=== PATIENT | male | born 1955 | race Caucasian/White ===

== ENCOUNTER 2019-11-17 09:14 | Day surgery (SDC) | payer SELFPAY ==
[2019-11-17 10:22] LABS: HEMATOCRIT 39.2 % (37.9-51.0); HEMOGLOBIN 12.5 g/dL (13.5-17.0); MEAN CORPUSCULAR HEMOGLOBIN 29.6 pg (27.0-33.4); MEAN CORPUSCULAR HGB CONC 31.9 g/dL (32.0-36.0); MEAN CORPUSCULAR VOLUME 93 fl (80-97); PLATELET COUNT 278 10^3/uL (150-450); RED BLOOD COUNT 4.22 10^6/uL (4.35-5.55); RED CELL DISTRIBUTION WIDTH 18.1 % (11.5-14.0)
[2019-11-17 10:44] LABS: BLOOD UREA NITROGEN 20 mg/dL (7-20)
[2019-11-17 10:46] LABS: INTERNATIONAL RATION (INR) 1.22; PROTHROMBIN TIME 15.4 SEC (11.4-15.4)
[2019-11-17 10:47] LABS: PARTIAL THROMBOPLASTIN TIME 32.1 SEC (23.5-35.8)
[2019-11-17] MEDS ORDERED: FENTANYL CITRATE INJ/PF 100 MCG/2 ML AMPUL ONE (10:53)
[2019-11-17] MEDS ORDERED: MIDAZOLAM 2 MG/2 ML INJ ONE (10:53)
[2019-11-17 11:19] LABS: WHITE BLOOD COUNT 150.9 10^3/uL (4.0-10.5)
[2019-11-17 11:22] LABS: ABSOLUTE LYMPHOCYTES# (MANUAL) 7.5 10^3/uL (0.5-4.7); ABSOLUTE MONOCYTES # (MANUAL) 4.5 10^3/uL (0.1-1.4); BASOPHILS % (MANUAL) 1 % (0-2); EOSINOPHILS % (MANUAL) 5 % (0-6); LYMPHOCYTES % (MANUAL) 5 % (13-45); MONOCYTES % (MANUAL) 3 % (3-13); SEGMENTED NEUTROPHILS % (MAN) 66 % (42-78); TOTAL CELLS COUNTED 100
[2019-11-17 11:23] LABS: ANISOCYTOSIS 2+; BAND NEUTROPHILS % (MANUAL) 14 % (3-5); METAMYELOCYTES % (MANUAL) 3 % (0-1); MYELOCYTES % (MANUAL) 1 % (0); PLATELET COMMENT ADEQUATE; PROMYELOCYTES % (MANUAL) 2 % (0)
--- NOTE | 2019-11-17 11:50 | RADIOLOGY REPORT (SQ) ---
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 TECHNIQUE: CT guided biopsy of the right iliac crest bone marrow performed with conscious sedation. CT Fluoroscopy Time: [address] scanners at this facility use dose modulation, iterative reconstruction, and/or weight based d osing when appropriate to reduce radiation dose to as low as reasonably achievable (ALARA). [facility]: Dose Right [facility]: CareDose [facility]: Dose Right [facility]: Teradose 4D [facility]: [employer] RADIATION DOSE: CT Rad equipment meets quality standard of care and radiation dose reduction techniq ues were employed. CTDIvol: 7.5 - 13.4 mGy. DLP: 319 mGy-cm.mGy. FINDINGS: After obtaining informed consent and explaining the risks and benefits of conscious sedati on,the patient agreed to the procedure. Prior to the procedure, a time out was performed to verify th e patient's identity and planned procedure. IV conscious sedation was administered and physician direction by the registered nurse using 1 millig omar of Versed and 75 micrograms of fentanyl. Physiologic monitoring was provided before, during, and after sedation. The total sedation time was 30 minutes. Documentation face to face time, the performing proceduralist, spent monitoring the patient: [address] scanning was performed to localize the percutaneous site for the biopsy approach. After sterile skin prep and local lidocaine for skin and deep tissue anesthesia, a coaxial biopsy nee dle was used to obtain a bone marrow aspirate, and a bone marrow core of tissue. The biopsy tissue wa s received by Dr. Luo's nurse to be sent out for evaluation. There were no immediate complication s. Pathology is pending at the time of dictation. IMPRESSION: CT GUIDED ASPIRATE AND CORE BIOPSY OF THE RIGHT POSTERIOR ILIAC CREST BONE MARROW PERFOR MED WITHOUT IMMEDIATE COMPLICATION. PATHOLOGY PENDING. IV CONSCIOUS SEDATION WITHOUT COMPLICATION. COMMENT: Quality ID [id number]: Final reports for procedures using fluoroscopy that document radiation exp osure indices, or exposure time and number of fluorographic images (if radiation exposure indices are not available) Patient medication list reviewed: Yes- Quality ID# [id number]:Eligible professional attests to documenting i n the medical record they obtained, updated, or reviewed the patient's current medications.. TECHNICAL DOCUMENTATION: JOB ID: [id number] Quality ID# [id number]: Final reports with documentation of one or more dose reduction techniques (e.g., Aut omated exposure control, adjustment of the mA and/or kV according to patient size, use of iterative r econstruction technique) 2010 [employer]- All Rights Reserved Reading location - IP/workstation name: [facility]
[2019-11-17 14:14] VITALS: BP 115/68
[2019-11-18 11:44] LABS: PATH REVIEW PATHOLOGIST REVIEWED
== END 2019-11-17 14:00 | disposition home or self-care (01) ==
LOC: RAD 09:14
PROVIDERS: ATTEND Internal Medicine
DX: C92.10 Chronic myeloid leukemia, BCR/ABL-positive, not having achieved remission (principal)
CPT/HCPCS: 36415; 84520; 82565; 85025; 85610; 85730; 38221; J2250; J3010

== ENCOUNTER 2019-12-07 22:07 | Inpatient (IN) | payer SELFPAY ==
[2019-12-07 23:04] LABS: ALBUMIN 3.8 g/dL (3.5-5.0); ALKALINE PHOSPHATASE 153 U/L (38-126); ANION GAP 13 (5-19); ASPARTATE AMINO TRANSFERASE 31 U/L (17-59); BILIRUBIN,DIRECT 0.1 mg/dL (0.0-0.4); BILIRUBIN,TOTAL 0.8 mg/dL (0.2-1.3); BLOOD UREA NITROGEN 56 mg/dL (7-20); CALCIUM 9.5 mg/dL (8.4-10.2); CARBON DIOXIDE 24 mmol/L (22-30); CHLORIDE 97 mmol/L (98-107); GLUCOSE 167 mg/dL (75-110); POTASSIUM 3.4 mmol/L (3.6-5.0); TOTAL PROTEIN 6.9 g/dL (6.3-8.2)
[2019-12-07 23:15] LABS: APPEARANCE,URINE SLIGHTLY-CLOUDY; BILIRUBIN,URINE NEGATIVE (NEGATIVE); COLOR,URINE YELLOW; GLUCOSE, URINE NEGATIVE (NEGATIVE); KETONES,URINE NEGATIVE (NEGATIVE); LEUKOCYTE ESTERASE,URINE NEGATIVE (NEGATIVE); NITRITE,URINE NEGATIVE (NEGATIVE); PROTEIN,URINE NEGATIVE (NEGATIVE); UROBILINOGEN,URINE NEGATIVE mg/dL (<2.0)
[2019-12-07 23:15] LABS: HEMATOCRIT 30.3 % (37.9-51.0); HEMOGLOBIN 8.8 g/dL (13.5-17.0); MEAN CORPUSCULAR HEMOGLOBIN 27.3 pg (27.0-33.4); MEAN CORPUSCULAR HGB CONC 29.2 g/dL (32.0-36.0); MEAN CORPUSCULAR VOLUME 94 fl (80-97); RED BLOOD COUNT 3.24 10^6/uL (4.35-5.55); RED CELL DISTRIBUTION WIDTH 17.5 % (11.5-14.0)
[2019-12-07 23:33] LABS: PLATELET COUNT 88 10^3/uL (150-450)
[2019-12-07 23:44] LABS: ABSOLUTE LYMPHOCYTES# (MANUAL) 7.9 10^3/uL (0.5-4.7); ABSOLUTE MONOCYTES # (MANUAL) 13.2 10^3/uL (0.1-1.4); BAND NEUTROPHILS % (MANUAL) 16 % (3-5); BASOPHILS % (MANUAL) 2 % (0-2); EOSINOPHILS % (MANUAL) 5 % (0-6); LYMPHOCYTES % (MANUAL) 3 % (13-45); METAMYELOCYTES % (MANUAL) 3 % (0-1); MONOCYTES % (MANUAL) 5 % (3-13); MYELOCYTES % (MANUAL) 1 % (0); PROMYELOCYTES % (MANUAL) 2 % (0); SEGMENTED NEUTROPHILS % (MAN) 63 % (42-78); TOTAL CELLS COUNTED 100
[2019-12-07 23:45] LABS: ANISOCYTOSIS 2+; POLYCHROMASIA 1+; TOXIC GRANULATION 1+
[2019-12-07 23:46] LABS: PLATELET COMMENT DECREASED; WHITE BLOOD COUNT 264.6 10^3/uL (4.0-10.5)
[2019-12-08] MEDS ORDERED: POTASSI CL 40 MEQ/NS 1L 1,000 ML IV ONE (00:54)
[2019-12-08] MEDS ORDERED: ONDANSETRON HCL INJ/PF 4 MG/2 ML SDV IV ONE (00:55)
--- NOTE | 2019-12-08 00:57 | ER Document Report ---
ED General - General Chief Complaint: Fever Stated Complaint: NAUSEA/VOMITING Time Seen by Provider: 12/08/19 00:32 TRAVEL OUTSIDE OF THE [place] IN LAST 30 DAYS: No - HPI Notes: Patient is a 64-year-old male with a history of CML, diagnosed 10 years ago, who presents to the emergency department for evaluation of dizziness, nausea, vomiting. He states he has been able to keep down little in the way of fluids for the last week. He started feeling lightheaded and dizzy. He states he has near syncopal episodes when he tries to walk. He denies any chest pain or shortness of breath. He has a chronic diarrhea issue from his metformin, states that does not seem to be worse. He states that every day his temperature seems to be about 100.0 in the afternoon, but he is never had a temperature above 100 .4. He has had some intermittent epigastric abdominal pain that he describes as nauseating, but denies any current pain at this time. He states he does believe he has been able to keep down his chemotherapy, Bosulif, at night. He also states he is been keeping his metformin down and taking his insulin as directed. - Related Data Allergies/Adverse Reactions: dasatinib [From Sprycel] Allergy (Verified 12/07/19 23:58) Past Medical History - General Information source: Patient, Relative - Social History Smoking Status: Never Smoker Chew tobacco use (# tins/day): No Frequency of alcohol use: None Drug Abuse: None Family History: Reviewed & Not Pertinent Patient has suicidal ideation: No Patient has homicidal ideation: No - Past Medical History Cardiac Medical History: Denies: Hx Coronary Artery Disease, Hx Heart Attack, Hx Hypertension Pulmonary Medical History: Denies: Hx Asthma, Hx Bronchitis, Hx COPD, Hx Pneumonia Neurological Medical History: Denies: Hx Cerebrovascular Accident, Hx Seizures Endocrine Medical History: Reports: Hx Diabetes Mellitus Type 2 Malignancy Medical History: Reports Other - CML Musculoskeletal Medical History: Denies Hx Arthritis - Immunizations Hx Diphtheria, Pertussis, Tetanus Vaccination: Yes Review of Systems - Review of Systems Constitutional: See HPI EENT: No symptoms reported Cardiovascular: See HPI Respiratory: No symptoms reported Gastrointestinal: See HPI Genitourinary: No symptoms reported Musculoskeletal: No symptoms reported Skin: No symptoms reported Neurological/Psychological: No symptoms reported Physical Exam - Vital signs Vitals: Temp Pulse BP Pulse Ox 97.8 F 84 74/57 L 99 12/07/19 22:29 12/07/19 22:29 12/07/19 22:29 12/07/19 22:29 - Notes Notes: Frail-appearing 64-year-old male who appears his stated age in no acute dist ress. Vital signs reviewed, please refer to chart. Head is normocephalic, atraumatic. Pupils equal round, reactive to light. Neck is supple without meningismus. Heart is regular rate and rhythm. Lungs are clear to auscultation bilaterally. Abdomen is soft, nontender, normoactive bowel sounds throughout. Extremities without cyanosis, clubbing. Posterior calves are nontender. Peripheral pulses are equal. Skin is warm and dry. Patient is awake, alert, neurological exam is nonfocal. Course - Re-evaluation Re-evalutation: 12/08/19 00:57 Patient presents to the emergency department for evaluation. On arrival his systolic blood pressure was in the 70s. IV was established. He was given fluids. Laboratory investigations were obtained. He has a marked leukocytosis, anemia, thrombocytopenia. He also has acute renal failure with an elevated creatinine above his baseline. He has mild hypokalemia. He was given IV fluids with potassium for his second liter. He has been normotensive, continues to feel nauseated, is given medication for this. At this point he is stable. I spoke with Dr. Andres who agrees with admission, consultation order will be placed. Will speak with medicine in regards to admission. 12/08/19 01:12 Dr. Lux will accept the patient for admission. Patient was hypertensive on arrival, I suspect this is all volume depletion. Given, however, his immunocompromise state, chemotherapy, elevated white count, low blood pressure, I did have urine culture and blood cultures ordered. - Vital Signs Vital signs: Temp Pulse Resp BP Pulse Ox 98.0 F 75 18 116/65 96 12/08/19 00:01 12/08/19 00:22 12/08/19 01:31 12/08/19 01:31 12/08/19 01:31 - Laboratory Result Diagrams: 12/07/19 22:35 12/07/19 22:35 Laboratory results interpreted by me: 12/07/19 12/07/19 22:35 22:35 WBC 264.6 H* RBC 3.24 L Hgb 8.8 L Hct 30.3 L MCHC 29.2 L RDW 17.5 H Plt Count 88 L Band Neutrophils % 16 H Lymphocytes % (Manual) 3 L Metamyelocytes % 3 H Myelocytes % 1 H Promyelocytes % 2 H Abs Neuts (Manual) 224.9 H Abs Lymphs (Manual) 7.9 H Abs Monocytes (Manual) 13.2 H Absolute Eos (Manual) 13.2 H Abs Basophils (Manual) 5.3 H Sodium 133.6 L Potassium 3.4 L Chloride 97 L BUN 56 H Creatinine 2.30 H Est GFR ( Amer) 35 L Est GFR (MDRD) Non-Af 29 L Glucose 167 H Alkaline Phosphatase 153 H Discharge - Discharge Clinical Impression: Dehydration, Hypokalemia, CML (chronic myelocytic leukemia) Acute renal failure Qualifiers: Acute renal failure type: unspecified Qualified Code(s): N17.9 - Acute kidney failure, unspecified Nausea & vomiting Qualifiers: Vomiting type: unspecified Vomiting Intractability: intractable Qualified Code(s): R11.2 - Nausea with vomiting, unspecified Condition: Stable Disposition: ADMITTED INPATIENT Admitting Provider: Maci (Hospitalist) Unit Admitted: Medical Floor
[2019-12-08] MEDS ORDERED: MAG HYDROX/AL HYDROX/SIMETH SUSP 30 ML UDCUP PO PRN (01:43)
[2019-12-08] MEDS ORDERED: MAGNESIUM HYDROXIDE SUSP 30 ML UDCUP PO PRN (01:43)
[2019-12-08] MEDS ORDERED: PROMETHAZINE HCL INJ 25 MG/1 ML VIAL IV PRN (01:43)
[2019-12-08] MEDS ORDERED: ACETAMINOPHEN 325 MG TABLET PO PRN (01:49)
[2019-12-08] MEDS ORDERED: MORPHINE SULFATE 10 MG/ML INJ IV PRN ×3 (01:49)
[2019-12-08] MEDS ORDERED: ACETAMINOPHEN 650 MG SUPP.RECT PR PRN (01:49)
[2019-12-08] MEDS ORDERED: DEXTROSE 50%-WATER 25 GM/50 ML DISP.SYRIN IV PRN ×2 (01:51)
[2019-12-08] MEDS ORDERED: GLUCAGON,HUMAN RECOMB 1 MG INJ IM PRN (01:51)
[2019-12-08] MEDS ORDERED: DEXTROSE 40% GEL 15 GM TUBE PO PRN ×2 (01:51)
--- NOTE | 2019-12-08 03:07 | PDOC H&P ---
History of Present Illness Admission Date/PCP: 12/08/2019 01:20 JOSH CAPPS Patient complains of: Vomiting History of Present Illness: FRANCISCO OLGUIN is a 64 year old male who presented to the emergency room with a 10- day history of nausea and vomiting. He admits developing nausea and vomiting 10 days ago with gradual worsening over the course of time. His nausea and vomiting have been accompanied by orthostatic lightheadedness with dizziness and have been associated with intermittent epigastric abdominal pain, an intermittent low-grade fever and progressive generalized weakness. He further admits a history of chronic diarrhea related to his use of metformin and indicates that he has been able to keep most of his medications and a little bit of fluid down. He further admits restarting his chemotherapy for CML on 11/07/2019 under the direction of Dr. Luo. In the emergency room he was found to have hyponatremia, hypokalemia acute kidney injury and acute hypotension due to hypovolemia which responded well to IV fluids. Patient was subsequently admitted to the hospital for further evaluation treatment. Past Medical History Cardiac Medical History: Denies: Atrial Fibrillation, Congestive Heart Failure, Coronary Artery Di sease, Myocardial Infarction, Hyperlipidema, Hypertension Pulmonary Medical History: Denies: Asthma, Bronchitis, Chronic Obstructive Pulmonary Disease (COPD), Pneumonia, Sleep Apnea EENT Medical History: Denies: Cataracts, Ears - Hearing aids Neurological Medical History: Denies: Hemorrhagic CVA, Ischemic CVA, Seizures Endocrine Medical History: Reports: Diabetes Mellitus Type 2 Denies: Diabetes Mellitus Type 1, Hyperthyroidism, Hypothyroidism Renal/ Medical History: Reports: Nephrolithiasis Denies: Chronic Kidney Disease Malignancy Medical History: Reports: Leukemia - Chronic myelocytic leukemia GI Medical History: Denies: Cirrhosis, Crohn's Disease, Gastroesophageal Reflux Disease, Hepatitis, Peptic Ulcer Disease, Ulcerative Colitis Musculoskeltal Medical History: Denies: Arthritis, Gout Skin Medical History: Denies: Eczema, Psoriasis Psychiatric Medical History: Denies: Alcohol Dependency, Substance Abuse, Tobacco Dependency Traumatic Medical History: Reports: None Hematology: Denies: Anemia, Bleeding Tendencies Infectious Medical History: Reports: None Past Surgical History Past Surgical History: Reports: Other - Bone marrow biopsy, ureteral stone removal via cystoscopy Social History Information Source: Patient Lives with: Spouse/Significant other Smoking Status: Never Smoker Electronic Cigarette use?: No Frequency of Alcohol Use: None Hx Recreational Drug Use: No Drugs: None Hx Prescription Drug Abuse: No - Advance Directive Resuscitation Status: Full Code Surrogate healthcare decision maker:: Fannie Olguin Family History Family History: CAD, DM, Hypertension, Other - Myasthenia gravis, multiple sclerosis. denies: Malignancy Parental Family History Reviewed: Yes Children Family History Reviewed: No Sibling(s) Family History Reviewed.: Yes Medication/Allergy Home Medications: Bosutinib [Bosulif] 400 mg PO DAILY 11/17/19 Allergies/Adverse Reactions: dasatinib [From Sprycel] Allergy (Verified 12/07/19 23:58) Review of Systems Constitutional: PRESENT: as per HPI, fever(s), weakness. ABSENT: chills Eyes: ABSENT: visual disturbances, other - eye pain Ears: ABSENT: hearing changes, other - Ear pain Nose, Mouth, and Throat: ABSENT: headache(s), mouth pain, sore throat Cardiovascular: PRESENT: as per HPI, other - Lightheadedness. ABSENT: chest pain, palpitations Respiratory: ABSENT: cough, dyspnea Gastrointestinal: PRESENT: as per HPI, abdominal pain, diarrhea, nausea, vomiting. ABSENT: coffee ground emesis, constipation, hematemesis, hematochezia, melena Genitourinary: ABSENT: difficulty urinating, dysuria, hematuria Musculoskeletal: ABSENT: back pain, joint swelling Integumentary: ABSENT: pruritus, rash Neurological: PRESENT: as per HPI, dizziness, other - Lightheadedness. ABSENT: confusion, convulsions, focal weakness, memory loss, syncope Psychiatric: ABSENT: anxiety, depression Endocrine: ABSENT: cold intolerance, heat intolerance, polydipsia, polyphagia, polyuria Hematologic/Lymphatic: ABSENT: easy bleeding, easy bruising Allergic/Immunologic: ABSENT: seasonal rhinorrhea Physical Exam Vital Signs: Temp Pulse Resp BP Pulse Ox 98.0 F 75 18 120/67 97 12/08/19 00:01 12/08/19 00:22 12/07/19 23:01 12/08/19 00:22 12/07/19 23:01 Intake & Output 12/06/19 12/07/19 12/08/19 23:59 23:59 23:59 Weight 77.111 kg General appearance: PRESENT: no acute distress, cooperative Head exam: PRESENT: atraumatic, normocephalic Eye exam: PRESENT: conjunctiva pink. ABSENT: conjunctival injection, scleral icterus Ear exam: PRESENT: normal external ear exam. ABSENT: bleeding, drainage Mouth exam: PRESENT: dry mucosa, neck supple Neck exam: ABSENT: thyromegaly, tracheal deviation Respiratory exam: PRESENT: clear to auscultation ann, symmetrical, unlabored Cardiovascular exam: PRESENT: RRR. ABSENT: clicks, gallop, rubs Pulses: PRESENT: normal radial pulses, normal dorsalis pedis pul Vascular exam: PRESENT: normal capillary refill. ABSENT: pallor GI/Abdominal exam: PRESENT: normal bowel sounds, soft, tenderness - Mild epigastric tenderness to palpation Rectal exam: PRESENT: deferred Extremities exam: ABSENT: joint swelling, pedal edema Musculoskeletal exam: ABSENT: deformity, dislocation Neurological exam: PRESENT: alert, oriented to person, oriented to place, oriented to time, oriented to situation, CN II-XII grossly intact. ABSENT: motor sensory deficit Psychiatric exam: PRESENT: appropriate affect, normal mood Skin exam: PRESENT: dry, intact, warm. ABSENT: jaundice, rash, urticaria Results Laboratory Results: 12/07/19 22:35 12/07/19 22:35 12/07/19 12/07/19 12/07/19 22:35 22:35 23:00 WBC 264.6 H* RBC 3.24 L Hgb 8.8 L Hct 30.3 L MCV 94 MCH 27.3 MCHC 29.2 L RDW 17.5 H Plt Count 88 L Seg Neutrophils % Not Reportable Sodium 133.6 L Potassium 3.4 L Chloride 97 L Carbon Dioxide 24 Anion Gap 13 BUN 56 H Creatinine 2.30 H Est GFR ( Amer) 35 L Glucose 167 H Calcium 9.5 Total Bilirubin 0.8 AST 31 Alkaline Phosphatase 153 H Total Protein 6.9 Albumin 3.8 Urine Color YELLOW Urine Appearance SLIGHTLY-CLOUDY Urine pH 5.0 Ur Specific [place] 1.010 Urine Protein NEGATIVE Urine Glucose (UA) NEGATIVE Urine Ketones NEGATIVE Urine Blood NEGATIVE Urine Nitrite NEGATIVE Ur Leukocyte Esterase NEGATIVE Urine WBC (Auto) 8 Urine RBC (Auto) 0 Assessment and Plan - Diagnosis (1) Acute gastritis without hemorrhage Qualifiers: Gastritis type: unspecified gastritis Qualified Code(s): K29.00 - Acute gastritis without bleeding Is this a current diagnosis for this admission?: Yes (2) Acute nontraumatic kidney injury Is this a current diagnosis for this admission?: Yes (3) Hypotension due to hypovolemia Is this a current diagnosis for this admission?: Yes (4) Hypokalemia Is this a current diagnosis for this admission?: Yes (5) Nausea & vomiting Qualifiers: Vomiting type: unspecified Vomiting Intractability: intractable Qualified Code(s): R11.2 - Nausea with vomiting, unspecified Is this a current diagnosis for this admission?: Yes (6) CML (chronic myelocytic leukemia) Is this a current diagnosis for this admission?: Yes - Plan Summary Summary: Patient is admitted to the medical floor where he will receive routine supportive and symptomatic cares. He will receive high-volume IV fluids with appropriate electrolytes for both vascular volume and electrolyte repletion. He will receive antiemetic therapy utilizing Reglan 10 mg IV before meals and at bedtime with Phenergan 12.5 mg IV every 4 hours as needed for breakthrough nausea. Patient's metformin will be discontinued. He will use morphine sulfate 4 mg IV every 2 hours on an as-needed basis for control of pain. He will begin with a clear liquid diet but can be advanced as tolerated. CBCs, metabolic profiles and magnesium levels will be obtained as needed. Hematology oncology consultation with Dr. Andres will be obtained. - Time Time Spent with patient: 25-34 minutes Medications reviewed and adjusted accordingly: Yes Anticipated discharge: Home - Inpatient Certification Based on my medical assessment, after consideration of the patient's comorbidities, presenting symptoms, or acuity I expect that the services needed warrant INPATIENT care.: Yes I certify that my determination is in accordance with my understanding of Medicare's requirements for reasonable and necessary INPATIENT services [42 CFR 412.3e].: Yes Medical Necessity: Need Close Monitoring Due to Risk of Patient Decompensation, Need For IV Fluids, Need for Pain Control, Risk of Complication if Not Cared For in Hospital
[2019-12-08] MEDS: HEPARIN SOD (PORCINE) 5,000 UNIT/ML 1 ML VIAL SUBCUT SCH ×3 (05:21→21:19)
[2019-12-08] MEDS: RINGERS SOLUTION,LACTATED 1,000 ML IV PRN ×5 (06:01→22:30)
[2019-12-08 06:50] LABS: ANION GAP 11 (5-19); BLOOD UREA NITROGEN 50 mg/dL (7-20); CALCIUM 8.5 mg/dL (8.4-10.2); CARBON DIOXIDE 23 mmol/L (22-30); CHLORIDE 102 mmol/L (98-107); GLUCOSE 110 mg/dL (75-110); POTASSIUM 3.6 mmol/L (3.6-5.0)
[2019-12-08] MEDS: INSULIN REG, HUMAN 100 UNIT/ML 3 ML VIAL (PYX) SUBCUT SCH ×4 (08:20→21:18)
[2019-12-08] MEDS: METOCLOPRAMIDE HCL INJ/PF 10 MG/2 ML SDV IV SCH ×4 (08:40→21:18)
--- NOTE | 2019-12-08 09:05 | PDOC CONSULTATION ---
Consultation Consult Date: 12/08/19 Attending physician:: YASH WELLS Provider Consulted: GYPSY JULIO Consult reason:: Severe nausea and vomiting, acute renal failure, CML History of Present Illness Admission Date/PCP: 12/08/19 01:16 JOSH CAPPS Patient complains of: Nausea and vomiting poor p.o. intake x7 days History of Present Illness: FRANCISCO SINGH is a 64 year old male with known history of longstanding CML, longstanding noncompliance with oral medication for this, most recently was on the drug Bosulif, and actually was on that earlier this year with good control of disease but was feeling pretty good and decided to stop taking it. He was off drug again for about 9 months and he was lost to follow-up with us as well, and presented with highly elevated white count and now was in blast crisis, bone marrow biopsy indicated 12% blasts, he was in accelerated phase CML now. We restarted oral medication on him and he notes that he has had pretty severe nausea and vomiting not able to keep anything down for several days. However prior to us even seeing him he lost nearly 20 pounds because of the disease progression. His creatinine was 2.1 on admission. He has been on aggressive hydration. Past Medical History Cardiac Medical History: Denies: Atrial Fibrillation, Congestive Heart Failure, Coronary Artery Disease, Myocardial Infarction, Hyperlipidema, Hypertension Pulmonary Medical History: Denies: Asthma, Bronchitis, Chronic Obstructive Pulmonary Disease (COPD), Pneumonia, Sleep Apnea EENT Medical History: Denies: Cataracts, Ears - Hearing aids Neurological Medical History: Denies: Hemorrhagic CVA, Ischemic CVA, Seizures Endocrine Medical History: Reports: Diabetes Mellitus Type 2 Denies: Diabetes Mellitus Type 1, Hyperthyroidism, Hypothyroidism Renal/ Medical History: Reports: Nephrolithiasis Denies: Chronic Kidney Disease Malignancy Medical History: Reports: Leukemia - Chronic myelocytic leukemia, Other - CML GI Medical History: Denies: Cirrhosis, Crohn's Disease, Gastroesophageal Reflux Disease, Hepatitis, Peptic Ulcer Disease, Ulcerative Colitis Musculoskeltal Medical History: Denies: Arthritis, Gout Skin Medical History: Denies: Eczema, Psoriasis Psychiatric Medical History: Denies: Alcohol Dependency, Substance Abuse, Tobacco Dependency Traumatic Medical History: Reports: None Hematology: Denies: Anemia, Bleeding Tendencies Infectious Medical History: Reports: None Past Surgical History Past Surgical History: Reports: None, Other - Bone marrow biopsy, ureteral stone removal via cystoscopy Social History Lives with: Spouse/Significant other Smoking Status: Never Smoker Electronic Cigarette use?: No Frequency of Alcohol Use: None Hx Recreational Drug Use: No Drugs: None Hx Prescription Drug Abuse: No - Advance Directive Resuscitation Status: Full Code Family History Family History: CAD, DM, Hypertension, Other - Myasthenia gravis, multiple sclerosis. denies: Malignancy Parental Family History Reviewed: Yes Children Family History Reviewed: Yes Sibling(s) Family History Reviewed.: Yes Medication/Allergy Allergies/Adverse Reactions: dasatinib [From [facility]] Allergy (Verified 12/07/19 23:58) Review of Systems Constitutional: ABSENT: chills, fever(s), headache(s), weight gain, weight loss Eyes: ABSENT: visual disturbances Ears: ABSENT: hearing changes Cardiovascular: ABSENT: chest pain, dyspnea on exertion, edema, orthropnea, palpitations Respiratory: ABSENT: cough, hemoptysis Gastrointestinal: ABSENT: abdominal pain, constipation, diarrhea, hematemesis, hematochezia, nausea, vomiting Genitourinary: ABSENT: dysuria, hematuria Musculoskeletal: ABSENT: joint swelling Integumentary: ABSENT: rash, wounds Neurological: ABSENT: abnormal gait, abnormal speech, confusion, dizziness, f ocal weakness, syncope Psychiatric: ABSENT: anxiety, depression, homidical ideation, suicidal ideation Endocrine: ABSENT: cold intolerance, heat intolerance, polydipsia, polyuria Hematologic/Lymphatic: ABSENT: easy bleeding, easy bruising Physical Exam Vital Signs: Temp Pulse Resp BP Pulse Ox 97.9 F 76 18 117/60 97 12/08/19 08:00 12/08/19 08:00 12/08/19 08:00 12/08/19 08:00 12/08/19 08:00 Intake & Output 12/07/19 12/08/19 12/09/19 06:59 06:59 06:59 Output Total 250 Balance -250 Weight 76.1 kg General appearance: PRESENT: no acute distress, well-developed, well-nourished Head exam: PRESENT: atraumatic, normocephalic Eye exam: PRESENT: conjunctiva pink, EOMI, PERRLA. ABSENT: scleral icterus Ear exam: PRESENT: normal external ear exam Mouth exam: PRESENT: moist, tongue midline Neck exam: ABSENT: carotid bruit, JVD, lymphadenopathy, thyromegaly Respiratory exam: PRESENT: clear to auscultation ann. ABSENT: rales, rhonchi, wheezes Cardiovascular exam: PRESENT: RRR. ABSENT: diastolic murmur, rubs, systolic murmur Pulses: PRESENT: normal dorsalis pedis pul Vascular exam: PRESENT: normal capillary refill GI/Abdominal exam: PRESENT: normal bowel sounds, soft. ABSENT: distended, guarding, mass, organolmegaly, rebound, tenderness Rectal exam: PRESENT: deferred Extremities exam: PRESENT: full ROM. ABSENT: calf tenderness, clubbing, pedal edema Neurological exam: PRESENT: alert, awake, oriented to person, oriented to place, oriented to time, oriented to situation, CN II-XII grossly intact. ABSENT: motor sensory deficit Psychiatric exam: PRESENT: appropriate affect, normal mood. ABSENT: homicidal ideation, suicidal ideation Skin exam: PRESENT: dry, intact, warm. ABSENT: cyanosis, rash Results Laboratory Results: 12/07/19 22:35 12/08/19 06:00 12/07/19 12/07/19 12/07/19 22:35 22:35 23:00 WBC 264.6 H* RBC 3.24 L Hgb 8.8 L Hct 30.3 L MCV 94 MCH 27.3 MCHC 29.2 L RDW 17.5 H Plt Count 88 L Seg Neutrophils % Not Reportable Sodium 133.6 L Potassium 3.4 L Chloride 97 L Carbon Dioxide 24 Anion Gap 13 BUN 56 H Creatinine 2.30 H Est GFR ( Amer) 35 L Glucose 167 H Lactic Acid Calcium 9.5 Total Bilirubin 0.8 AST 31 Alkaline Phosphatase 153 H Total Protein 6.9 Albumin 3.8 TSH Urine Color YELLOW Urine Appearance SLIGHTLY-CLOUDY Urine pH 5.0 Ur Specific [place] 1.010 Urine Protein NEGATIVE Urine Glucose (UA) NEGATIVE Urine Ketones NEGATIVE Urine Blood NEGATIVE Urine Nitrite NEGATIVE Ur Leukocyte Esterase NEGATIVE Urine WBC (Auto) 8 Urine RBC (Auto) 0 12/08/19 12/08/19 12/08/19 02:57 06:00 06:00 WBC RBC Hgb Hct MCV MCH MCHC RDW Plt Count Seg Neutrophils % Sodium 136.0 L Potassium 3.6 Chloride 102 Carbon Dioxide 23 Anion Gap 11 BUN 50 H Creatinine 2.13 H Est GFR ( Amer) 38 L Glucose 110 Lactic Acid 0.6 L 0.5 L Calcium 8.5 Total Bilirubin AST Alkaline Phosphatase Total Protein Albumin TSH Urine Color Urine Appearance Urine pH Ur Specific [place] Urine Protein Urine Glucose (UA) Urine Ketones Urine Blood Urine Nitrite Ur Leukocyte Esterase Urine WBC (Auto) Urine RBC (Auto) 12/08/19 06:00 WBC RBC Hgb Hct MCV MCH MCHC RDW Plt Count Seg Neutrophils % Sodium Potassium Chloride Carbon Dioxide Anion Gap BUN Creatinine Est GFR ( Amer) Glucose Lactic Acid Calcium Total Bilirubin AST Alkaline Phosphatase Total Protein Albumin TSH 2.03 Urine Color Urine Appearance Urine pH Ur Specific [place] Urine Protein Urine Glucose (UA) Urine Ketones Urine Blood Urine Nitrite Ur Leukocyte Esterase Urine WBC (Auto) Urine RBC (Auto) Assessment & Plan - Diagnosis (1) Acute renal failure Qualifiers: Acute renal failure type: unspecified Qualified Code(s): N17.9 - Acute kidney failure, unspecified Is this a current diagnosis for this admission?: Yes Plan: Likely secondary to dehydration, unlikely directly related to the drug although the drug could have caused some nausea for him. Unlikely also related to the high white count, I do not think this is leukostasis causing this issue. Continue with aggressive hydration as is being done. (2) CML (chronic myelocytic leukemia) Is this a current diagnosis for this admission?: Yes Plan: His oral medication is on hold, after his kidney function improves to less than 1.5, I would like for him to try his oral medication while in house to see if the nausea comes back. But we will cross that road when we are there. - Time Time Spent: Greater than 70 Minutes
[2019-12-08] MEDS: PANTOPRAZOLE SODIUM 40 MG VIAL IV SCH ×2 (09:43→21:18)
[2019-12-08] MEDS: DOCUSATE SODIUM 100 MG/10 ML UDC PO SCH ×2 (09:45→17:30)
[2019-12-08] MEDS: ALLOPURINOL 100 MG TABLET PO SCH (18:53)
[2019-12-09] MEDS: RINGERS SOLUTION,LACTATED 1,000 ML IV PRN ×4 (02:24→22:01)
[2019-12-09] MEDS: HEPARIN SOD (PORCINE) 5,000 UNIT/ML 1 ML VIAL SUBCUT SCH ×3 (05:40→21:43)
[2019-12-09 06:01] LABS: HEMATOCRIT 24.5 % (37.9-51.0); MEAN CORPUSCULAR HEMOGLOBIN 28.9 pg (27.0-33.4); MEAN CORPUSCULAR HGB CONC 30.8 g/dL (32.0-36.0); MEAN CORPUSCULAR VOLUME 94 fl (80-97); RED CELL DISTRIBUTION WIDTH 17.7 % (11.5-14.0)
[2019-12-09 06:19] LABS: ANION GAP 10 (5-19); CALCIUM 8.5 mg/dL (8.4-10.2); CARBON DIOXIDE 24 mmol/L (22-30); CHLORIDE 103 mmol/L (98-107); GLUCOSE 153 mg/dL (75-110); POTASSIUM 3.4 mmol/L (3.6-5.0)
[2019-12-09 06:29] LABS: BLOOD UREA NITROGEN 28 mg/dL (7-20)
[2019-12-09 06:38] LABS: PLATELET COUNT 67 10^3/uL (150-450)
[2019-12-09 06:41] LABS: HEMOGLOBIN 7.5 g/dL (13.5-17.0); WHITE BLOOD COUNT 217.7 10^3/uL (4.0-10.5)
[2019-12-09] MEDS: INSULIN REG, HUMAN 100 UNIT/ML 3 ML VIAL (PYX) SUBCUT SCH ×4 (08:14→21:59)
[2019-12-09] MEDS: METOCLOPRAMIDE HCL INJ/PF 10 MG/2 ML SDV IV SCH ×4 (08:16→22:01)
[2019-12-09] MEDS: PANTOPRAZOLE SODIUM 40 MG VIAL IV SCH ×2 (09:31→22:01)
[2019-12-09] MEDS: DOCUSATE SODIUM 100 MG/10 ML UDC PO SCH ×2 (09:31→18:19)
[2019-12-09] MEDS: ALLOPURINOL 100 MG TABLET PO SCH ×3 (09:31→17:38)
[2019-12-09] MEDS: INSULIN GLARGINE,HUM.REC.ANLOG 1,000 UNIT/10 ML VIAL SUBCUT SCH (09:32)
[2019-12-09] MEDS ORDERED: MAGNESIUM OXIDE 400 MG TABLET PO ONE ×2 (10:30→13:00)
[2019-12-09] MEDS ORDERED: POTASSIUM CHLORIDE 10 MEQ TABLET.ER PO ONE ×2 (10:30→12:48)
--- NOTE | 2019-12-09 12:10 | CDI QUERY ---
CDI Query CDI Review: Dear Provider: To better reflect your patients severity of illness, morbidity, and resource utilization Please specify and document in the Progress Notes and Discharge Summary if you are monitoring / treating / evaluating any of the following conditions: The terms probable, suspected, likely, possible or still to be ruled out may be used if you are unable to determine the exact nature of a condition. 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 Luo. In the emergency room he was found to have hyponatremia, hypokalemia acute kidney injury and acute hypotension due to hypovolemia which responded well to IV fluids. Reason for consult: Severe nausea & vomiting, acute renal failure, CML Oncology Consult Notes: now was in blast crisis, bone marrow biopsy indicated 12% blasts, he was in accelerated phase CML now. We restarted oral medication on him and he notes that he has had pretty severe nausea and vomiting not able to keep anything down for several days. However prior to us even seeing him he lost nearly 20 pounds because of the disease progression. Thank you, Clinical Documentation Physician Advisors ANGELITA South RN, BSN RN [email or web address] Office [phone] Office [phone]
--- NOTE | 2019-12-09 17:12 | PDOC PROGRESS REPORT ---
Subjective Progress Note for:: 12/09/19 Subjective:: Patient seen early this morning on rounds. He is talkative and denies any new complaints. He states that he had a fever last night. Reason For Visit: ACUTE KIDNEY INJURY, DEHYDRATION Physical Exam Vital Signs: Temp Pulse Resp BP Pulse Ox 99.1 F 91 24 H 124/59 L 95 12/09/19 10:59 12/09/19 10:59 12/09/19 10:59 12/09/19 10:59 12/09/19 10:59 Intake & Output 12/08/19 12/09/19 12/10/19 06:59 06:59 06:59 Intake Total 8507 2113 Output Total 250 1250 Balance -250 7257 2113 Weight 76.1 kg 81.6 kg General appearance: PRESENT: no acute distress, well-developed, well-nourished Head exam: PRESENT: normocephalic Eye exam: PRESENT: EOMI Respiratory exam: PRESENT: clear to auscultation ann, unlabored Cardiovascular exam: PRESENT: RRR. ABSENT: systolic murmur GI/Abdominal exam: PRESENT: soft. ABSENT: tenderness Neurological exam: PRESENT: alert, awake Psychiatric exam: PRESENT: appropriate affect Skin exam: PRESENT: normal color Results Laboratory Results: 12/09/19 05:04 12/09/19 05:04 12/09/19 12/09/19 05:04 05:04 WBC 217.7 H* RBC 2.60 L Hgb 7.5 L Hct 24.5 L MCV 94 MCH 28.9 MCHC 30.8 L RDW 17.7 H Plt Count 67 L Sodium 137.4 Potassium 3.4 L Chloride 103 Carbon Dioxide 24 Anion Gap 10 BUN 28 H D Creatinine 1.64 H Est GFR ( Amer) 52 L Glucose 153 H Calcium 8.5 Magnesium 1.5 L Assessment & Plan - Diagnosis (1) CML (chronic myelocytic leukemia) Is this a current diagnosis for this admission?: Yes Plan: All treatment currently on hold until Cr is <1.5. He is on Allopurinol, but may consider starting Hydrea to help decrease the WBC count. I discussed his care for about 40 minutes by phone with his today. All of her questions were answered. - Time Time Spent with patient: 25-34 minutes
--- NOTE | 2019-12-09 17:13 | PDOC PROGRESS REPORT ---
Subjective Progress Note for:: 12/09/19 Subjective:: Patient feels well today. Denies any shortness of breath. Feels well and eager to go home. Reason For Visit: ACUTE KIDNEY INJURY, DEHYDRATION Physical Exam Vital Signs: Temp Pulse Resp BP Pulse Ox 99.1 F 91 24 H 124/59 L 95 12/09/19 10:59 12/09/19 10:59 12/09/19 10:59 12/09/19 10:59 12/09/19 10:59 Intake & Output 12/08/19 12/09/19 12/10/19 06:59 06:59 06:59 Intake Total 8507 2113 Output Total 250 1250 Balance -250 7257 2113 Weight 76.1 kg 81.6 kg General appearance: PRESENT: no acute distress, cooperative Neck exam: ABSENT: JVD Respiratory exam: PRESENT: clear to auscultation ann, unlabored. ABSENT: tachypnea, wheezes Cardiovascular exam: PRESENT: RRR, +S1, +S2. ABSENT: tachycardia GI/Abdominal exam: PRESENT: normal bowel sounds, soft. ABSENT: rebound, rigid, tenderness Neurological exam: PRESENT: alert, awake, oriented to person, oriented to place, oriented to time Results Laboratory Results: 12/09/19 05:04 12/09/19 05:04 12/09/19 12/09/19 05:04 05:04 WBC 217.7 H* RBC 2.60 L Hgb 7.5 L Hct 24.5 L MCV 94 MCH 28.9 MCHC 30.8 L RDW 17.7 H Plt Count 67 L Sodium 137.4 Potassium 3.4 L Chloride 103 Carbon Dioxide 24 Anion Gap 10 BUN 28 H D Creatinine 1.64 H Est GFR ( Amer) 52 L Glucose 153 H Calcium 8.5 Magnesium 1.5 L Assessment and Plan - Diagnosis (1) Acute renal failure Qualifiers: Acute renal failure type: unspecified Qualified Code(s): N17.9 - Acute kidney failure, unspecified Is this a current diagnosis for this admission?: Yes Plan: Suspected to be secondary to dehydration. Improving with IV fluids. Continue to trend BMP. (2) CML (chronic myelocytic leukemia) Is this a current diagnosis for this admission?: Yes Plan: Patient has accelerated phase of CML. Oncology is following. WBC of almost doubled since earlier this month despite being on chemo medication. Aggressive IV fluid hydration. May need to consider transferring patient to tertiary facility for consideration of leukapheresis if needed for treatment of patient's significant worsening CML. Oncology will continue to follow. (3) Hypokalemia Is this a current diagnosis for this admission?: Yes (4) Fever Qualifiers: Fever type: due to other condition Qualified Code(s): R50.81 - Fever presenting with conditions classified elsewhere Is this a current diagnosis for this admission?: Yes Plan: Likely secondary to patient's CML accelerated phase. No evidence of infection at this time. Chest x-ray is clear and patient has no other complaints to suggest infection. Will give Tylenol for fevers and hold off on antibiotics at this time. (5) Hyperuricemia Is this a current diagnosis for this admission?: Yes Plan: Secondary to increased cell turnover weights very malignant CML. Started on allopurinol. - Time Time Spent with patient: 15-24 minutes
[2019-12-09] MEDS ORDERED: ACETAMINOPHEN 325 MG TABLET ONE (17:54)
--- NOTE | 2019-12-09 18:32 | RADIOLOGY REPORT (SQ) ---
EXAM DESCRIPTION: CHEST 2 VIEWS COMPLETED DATE/TIME: 12/09/2019 6:15 pm REASON FOR STUDY: tachypnea COMPARISON: None. EXAM PARAMETERS: NUMBER OF VIEWS: two views TECHNIQUE: Digital Frontal and Lateral radiographic views of the chest acquired. RADIATION DOSE: NA LIMITATIONS: none FINDINGS: LUNGS AND PLEURA: Minimal right basilar atelectasis. Remainder of the lungs are clear. Trace left pleural effusion in the posterior costophrenic sulcus. No pneumothorax MEDIASTINUM AND HILAR STRUCTURES: No masses or contour abnormalities. HEART AND VASCULAR STRUCTURES: Heart normal size. No evidence for failure. BONES: No acute findings. HARDWARE: None in the chest. OTHER: No other significant finding. IMPRESSION: Minimal right basilar atelectasis. Trace left pleural effusion TECHNICAL DOCUMENTATION: JOB ID: [id number] [email or web address]- All Rights Reserved Reading location - IP/workstation name: [email or web address]
[2019-12-09] MEDS: LORAZEPAM INJ 2 MG/1 ML VIAL IV PRN (22:07)
[2019-12-10] MEDS: RINGERS SOLUTION,LACTATED 1,000 ML IV PRN ×3 (02:05→08:37)
[2019-12-10] MEDS: HEPARIN SOD (PORCINE) 5,000 UNIT/ML 1 ML VIAL SUBCUT SCH ×3 (05:46→21:22)
[2019-12-10 07:47] LABS: HEMATOCRIT 23.7 % (37.9-51.0); MEAN CORPUSCULAR HEMOGLOBIN 27.8 pg (27.0-33.4); MEAN CORPUSCULAR HGB CONC 29.5 g/dL (32.0-36.0); MEAN CORPUSCULAR VOLUME 94 fl (80-97); RED BLOOD COUNT 2.51 10^6/uL (4.35-5.55); RED CELL DISTRIBUTION WIDTH 17.4 % (11.5-14.0)
[2019-12-10 08:09] LABS: ANION GAP 6 (5-19); BLOOD UREA NITROGEN 14 mg/dL (7-20); CARBON DIOXIDE 27 mmol/L (22-30); CHLORIDE 105 mmol/L (98-107); GLUCOSE 153 mg/dL (75-110); POTASSIUM 3.7 mmol/L (3.6-5.0)
[2019-12-10] MEDS: INSULIN REG, HUMAN 100 UNIT/ML 3 ML VIAL (PYX) SUBCUT SCH ×4 (08:13→21:14)
[2019-12-10] MEDS: METOCLOPRAMIDE HCL INJ/PF 10 MG/2 ML SDV IV SCH ×4 (08:13→21:15)
[2019-12-10 08:30] LABS: PLATELET COUNT 59 10^3/uL (150-450)
--- NOTE | 2019-12-10 08:31 | PDOC PROGRESS REPORT ---
Subjective Progress Note for:: 12/10/19 Subjective:: Patient is feeling better but was again nauseous, felt that full diet was too much right now, wants to back down to clear liquids. Gave orders to nursing. BMP pending. Creatinine is improving. Reason For Visit: ACUTE KIDNEY INJURY, DEHYDRATION Physical Exam Vital Signs: Temp Pulse Resp BP Pulse Ox 100.5 F H 70 30 H 128/74 H 91 L 12/10/19 08:00 12/10/19 08:00 12/10/19 08:00 12/10/19 08:00 12/10/19 08:00 Intake & Output 12/09/19 12/10/19 12/11/19 06:59 06:59 06:59 Intake Total 8507 5736 Output Total 1250 725 Balance 7257 5011 Weight 81.6 kg 84.5 kg General appearance: PRESENT: no acute distress, well-developed, well-nourished Head exam: PRESENT: atraumatic, normocephalic Eye exam: PRESENT: conjunctiva pink, EOMI, PERRLA. ABSENT: scleral icterus Ear exam: PRESENT: normal external ear exam Mouth exam: PRESENT: moist, tongue midline Neck exam: ABSENT: carotid bruit, JVD, lymphadenopathy, thyromegaly Respiratory exam: PRESENT: clear to auscultation ann. ABSENT: rales, rhonchi, wheezes Cardiovascular exam: PRESENT: RRR. ABSENT: diastolic murmur, rubs, systolic murmur Pulses: PRESENT: normal dorsalis pedis pul Vascular exam: PRESENT: normal capillary refill GI/Abdominal exam: PRESENT: normal bowel sounds, soft. ABSENT: distended, guarding, mass, organolmegaly, rebound, tenderness Rectal exam: PRESENT: deferred Extremities exam: PRESENT: full ROM. ABSENT: calf tenderness, clubbing, pedal edema Neurological exam: PRESENT: alert, awake, oriented to person, oriented to place, oriented to time, oriented to situation, CN II-XII grossly intact. ABSENT: motor sensory deficit Psychiatric exam: PRESENT: appropriate affect, normal mood. ABSENT: homicidal ideation, suicidal ideation Skin exam: PRESENT: dry, intact, warm. ABSENT: cyanosis, rash Results Impressions: Chest X-Ray 12/09/19 00:00 IMPRESSION: Minimal right basilar atelectasis. Trace left pleural effusion Assessment & Plan - Diagnosis (1) Acute renal failure Qualifiers: Acute renal failure type: unspecified Qualified Code(s): N17.9 - Acute kidney failure, unspecified Is this a current diagnosis for this admission?: Yes Plan: Improving, secondary to severe dehydration. (2) CML (chronic myelocytic leukemia) Is this a current diagnosis for this admission?: Yes Plan: Holding all therapy for now - Time Time Spent with patient: 15-24 minutes
[2019-12-10 09:48] LABS: WHITE BLOOD COUNT 205.2 10^3/uL (4.0-10.5)
[2019-12-10] MEDS ORDERED: RINGERS SOLUTION,LACTATED 1,000 ML IV PRN (09:57)
[2019-12-10] MEDS: PANTOPRAZOLE SODIUM 40 MG VIAL IV SCH ×2 (10:25→21:15)
[2019-12-10] MEDS: DOCUSATE SODIUM 100 MG/10 ML UDC PO SCH ×2 (10:25→18:25)
[2019-12-10] MEDS: ALLOPURINOL 100 MG TABLET PO SCH ×3 (10:26→18:27)
[2019-12-10] MEDS: INSULIN GLARGINE,HUM.REC.ANLOG 1,000 UNIT/10 ML VIAL SUBCUT SCH (10:26)
[2019-12-10] MEDS ORDERED: MAGNESIUM SULFATE 4 GM/D5W 100 ML IV ONE (10:30)
--- NOTE | 2019-12-10 11:48 | PDOC PROGRESS REPORT ---
Subjective Progress Note for:: 12/10/19 Subjective:: Patient is doing well today. Denies any shortness of breath nausea or vomiting. Reason For Visit: ACUTE KIDNEY INJURY, DEHYDRATION Physical Exam Vital Signs: Temp Pulse Resp BP Pulse Ox 100.5 F H 70 30 H 128/74 H 91 L 12/10/19 08:00 12/10/19 08:00 12/10/19 08:00 12/10/19 08:00 12/10/19 08:00 Intake & Output 12/09/19 12/10/19 12/11/19 06:59 06:59 06:59 Intake Total 8507 5736 1000 Output Total 1250 725 Balance 7257 5011 1000 Weight 81.6 kg 84.5 kg General appearance: PRESENT: no acute distress, cooperative Neck exam: ABSENT: JVD Respiratory exam: PRESENT: clear to auscultation ann, unlabored. ABSENT: tachypnea, wheezes Cardiovascular exam: PRESENT: RRR, +S1, +S2. ABSENT: tachycardia GI/Abdominal exam: PRESENT: soft. ABSENT: rebound, rigid, tenderness Neurological exam: PRESENT: alert, awake Results Laboratory Results: 12/10/19 07:13 12/10/19 07:13 12/10/19 12/10/19 12/10/19 07:13 07:13 07:13 WBC 205.2 H* RBC 2.51 L Hgb 7.0 L Hct 23.7 L MCV 94 MCH 27.8 MCHC 29.5 L RDW 17.4 H Plt Count 59 L Sodium 138.4 Potassium 3.7 Chloride 105 Carbon Dioxide 27 Anion Gap 6 BUN 14 Creatinine 1.02 Est GFR ( Amer) > 60 Glucose 153 H Uric Acid 7.3 Calcium 8.0 L Magnesium 1.2 L* 12/07/19 23:00 Clean Catch Midstream Urine Culture - Final NO GROWTH 2 DAYS Impressions: Chest X-Ray 12/09/19 00:00 IMPRESSION: Minimal right basilar atelectasis. Trace left pleural effusion Assessment and Plan - Diagnosis (1) Acute renal failure Qualifiers: Acute renal failure type: unspecified Qualified Code(s): N17.9 - Acute kidney failure, unspecified Is this a current diagnosis for this admission?: Yes Plan: Suspected to be secondary to dehydration. Resolved with IV fluids. Will DC IV fluids for now and encourage p.o. hydration. (2) CML (chronic myelocytic leukemia) Is this a current diagnosis for this admission?: Yes Plan: Patient has accelerated phase of CML. Oncology is following. Discussed plan with patient's oncologist Dr. Luo who recommends holding chemotherapy for now given patient still has some nausea and may worsen patient's renal failure. Patient will follow-up with Dr. Luo in the clinic to continue further management of his CML. I have discussed with Dr. Luo who advises that there is no need for leukapheresis at this time. Recommendations appreciated. (3) Hypokalemia Is this a current diagnosis for this admission?: Yes Plan: Supplement as needed. Currently resolved. (4) Fever Qualifiers: Fever type: due to other condition Qualified Code(s): R50.81 - Fever presenting with conditions classified elsewhere Is this a current diagnosis for this admission?: Yes Plan: Likely secondary to patient's CML accelerated phase. No evidence of infection at this time. Chest x-ray is clear, urinalysis is negative, blood cultures negative and patient has no other complaints to suggest infection. Will give Tylenol for fevers and hold off on antibiotics at this time. (5) Hyperuricemia Is this a current diagnosis for this admission?: Yes Plan: Secondary to increased cell turnover from very malignant CML. Uric acid level has dropped from 14-7 on allopurinol. (6) Hypomagnesemia Is this a current diagnosis for this admission?: Yes Plan: Level is 1.2. Give 4 g of mag sulfate - Time Time Spent with patient: 15-24 minutes
[2019-12-10] MEDS: ACETAMINOPHEN 325 MG TABLET PO PRN ×2 (14:08→23:34)
[2019-12-10] MEDS: LORAZEPAM INJ 2 MG/1 ML VIAL IV PRN (21:15)
[2019-12-11 05:16] LABS: MEAN CORPUSCULAR HEMOGLOBIN 28.7 pg (27.0-33.4); MEAN CORPUSCULAR HGB CONC 30.8 g/dL (32.0-36.0); MEAN CORPUSCULAR VOLUME 93 fl (80-97); RED BLOOD COUNT 2.79 10^6/uL (4.35-5.55); RED CELL DISTRIBUTION WIDTH 17.6 % (11.5-14.0)
[2019-12-11 05:30] LABS: ANION GAP 12 (5-19); BLOOD UREA NITROGEN 10 mg/dL (7-20); CALCIUM 8.4 mg/dL (8.4-10.2); CARBON DIOXIDE 26 mmol/L (22-30); CHLORIDE 102 mmol/L (98-107); GLUCOSE 127 mg/dL (75-110); POTASSIUM 3.4 mmol/L (3.6-5.0)
[2019-12-11 05:46] LABS: PLATELET COUNT 62 10^3/uL (150-450)
[2019-12-11] MEDS: HEPARIN SOD (PORCINE) 5,000 UNIT/ML 1 ML VIAL SUBCUT SCH ×2 (06:59→13:10)
[2019-12-11] MEDS ORDERED: POTASSIUM CHLORIDE 10 MEQ TABLET.ER PO ONE (07:44)
[2019-12-11] MEDS: INSULIN REG, HUMAN 100 UNIT/ML 3 ML VIAL (PYX) SUBCUT SCH ×2 (08:01→11:27)
--- NOTE | 2019-12-11 08:06 | PDOC PROGRESS REPORT ---
Subjective Progress Note for:: 12/11/19 Subjective:: No acute events overnight, patient is tolerating liquids now Reason For Visit: ACUTE KIDNEY INJURY, DEHYDRATION Physical Exam Vital Signs: Temp Pulse Resp BP Pulse Ox 101 F H 88 18 135/75 H 98 12/11/19 00:34 12/10/19 20:00 12/10/19 23:22 12/10/19 23:22 12/10/19 20:00 Intake & Output 12/10/19 12/11/19 12/12/19 06:59 06:59 06:59 Intake Total 5736 2789 Output Total 725 Balance 5011 2789 Weight 84.5 kg 85.3 kg General appearance: PRESENT: no acute distress, well-developed, well-nourished Head exam: PRESENT: atraumatic, normocephalic Eye exam: PRESENT: conjunctiva pink, EOMI, PERRLA. ABSENT: scleral icterus Ear exam: PRESENT: normal external ear exam Mouth exam: PRESENT: moist, tongue midline Neck exam: ABSENT: carotid bruit, JVD, lymphadenopathy, thyromegaly Respiratory exam: PRESENT: clear to auscultation ann. ABSENT: rales, rhonchi, wheezes Cardiovascular exam: PRESENT: RRR. ABSENT: diastolic murmur, rubs, systolic murmur Pulses: PRESENT: normal dorsalis pedis pul Vascular exam: PRESENT: normal capillary refill GI/Abdominal exam: PRESENT: normal bowel sounds, soft. ABSENT: distended, guarding, mass, organolmegaly, rebound, tenderness Rectal exam: PRESENT: deferred Extremities exam: PRESENT: full ROM. ABSENT: calf tenderness, clubbing, pedal edema Neurological exam: PRESENT: alert, awake, oriented to person, oriented to place, oriented to time, oriented to situation, CN II-XII grossly intact. ABSENT: motor sensory deficit Psychiatric exam: PRESENT: appropriate affect, normal mood. ABSENT: homicidal ideation, suicidal ideation Skin exam: PRESENT: dry, intact, warm. ABSENT: cyanosis, rash Results Laboratory Results: 12/11/19 04:40 12/11/19 04:40 12/10/19 12/10/19 12/10/19 07:13 07:13 07:13 WBC 205.2 H* RBC 2.51 L Hgb 7.0 L Hct 23.7 L MCV 94 MCH 27.8 MCHC 29.5 L RDW 17.4 H Plt Count 59 L Sodium 138.4 Potassium 3.7 Chloride 105 Carbon Dioxide 27 Anion Gap 6 BUN 14 Creatinine 1.02 Est GFR ( Amer) > 60 Glucose 153 H Uric Acid 7.3 Calcium 8.0 L Magnesium 1.2 L* 12/11/19 12/11/19 04:40 04:40 WBC 234.0 H* RBC 2.79 L Hgb 8.0 L Hct 26.0 L MCV 93 MCH 28.7 MCHC 30.8 L RDW 17.6 H Plt Count 62 L Sodium 140.0 Potassium 3.4 L Chloride 102 Carbon Dioxide 26 Anion Gap 12 BUN 10 Creatinine 0.93 Est GFR ( Amer) > 60 Glucose 127 H Uric Acid Calcium 8.4 Magnesium 1.6 12/07/19 23:00 Clean Catch Midstream Urine Culture - Final NO GROWTH 2 DAYS Impressions: Chest X-Ray 12/09/19 00:00 IMPRESSION: Minimal right basilar atelectasis. Trace left pleural effusion Assessment & Plan - Diagnosis (1) Acute renal failure Qualifiers: Acute renal failure type: unspecified Qualified Code(s): N17.9 - Acute kidney failure, unspecified Is this a current diagnosis for this admission?: Yes Plan: Resolved (2) CML (chronic myelocytic leukemia) Is this a current diagnosis for this admission?: Yes Plan: Nausea and vomiting now resolved enough for patient to be able to go home. Patient will hold oral medication until he sees us next week. He should be tolerating a full diet before he restarts. We will need to dose reduce oral TKI when we restart - Time Time Spent with patient: 15-24 minutes
[2019-12-11] MEDS: METOCLOPRAMIDE HCL INJ/PF 10 MG/2 ML SDV IV SCH ×2 (08:52→11:27)
[2019-12-11] MEDS: ALLOPURINOL 100 MG TABLET PO SCH ×2 (09:00→13:29)
[2019-12-11] MEDS: INSULIN GLARGINE,HUM.REC.ANLOG 1,000 UNIT/10 ML VIAL SUBCUT SCH (09:00)
[2019-12-11] MEDS: PANTOPRAZOLE SODIUM 40 MG VIAL IV SCH (09:00)
[2019-12-11] MEDS: DOCUSATE SODIUM 100 MG/10 ML UDC PO SCH (09:00)
[2019-12-11 12:23] VITALS: BP 142/83
--- NOTE | 2019-12-11 12:26 | PDOC DISCHARGE SUMMARY ---
Impression - Admit/DC Date/PCP Admission Date/Primary Care Provider: 12/08/19 01:16 CLIFF CAPPS-Kimberlee Discharge Date: 12/11/19 - Discharge Diagnosis (1) Acute renal failure Is this a current diagnosis for this admission?: Yes (2) CML (chronic myelocytic leukemia) Is this a current diagnosis for this admission?: Yes (3) Hypokalemia Is this a current diagnosis for this admission?: Yes (4) Fever Is this a current diagnosis for this admission?: Yes (5) Hyperuricemia Is this a current diagnosis for this admission?: Yes (6) Hypomagnesemia Is this a current diagnosis for this admission?: Yes - Additional Information Resuscitation Status: Full Code Discharge Diet: Regular Discharge Activity: Activity As Tolerated Referrals: GYPSY LUO MD [ACTIVE STAFF] - 12/15/19 2:00 pm ( ) LETICIA PETERSON MD [ACTIVE STAFF] - Follow up as needed Prescriptions: Potassium Chloride [K-Tab ER] 20 meq PO DAILY #15 tablet.er Ondansetron [Zofran Odt 4 mg Tablet] 1 - 2 tab PO Q4HP PRN #10 tab.rapdis PRN Reason: For Nausea/Vomiting Allopurinol [Zyloprim 100 mg Tablet] 100 mg PO TID 30 Days tablet Home Medications: Insulin Glargine,Hum.rec.anlog [Lantus Insulin 100 Unit/1 ml 10 ml] 15 unit SUBCUT DAILY 12/08/19 Acetaminophen [Tylenol 325 mg Tablet] 650 mg PO Q6HP PRN tablet 12/11/19 Allopurinol [Zyloprim 100 mg Tablet] 100 mg PO TID 30 Days tablet 12/11/19 Ondansetron [Zofran Odt 4 mg Tablet] 1 - 2 tab PO Q4HP PRN #10 tab.rapdis 12/11/19 Potassium Chloride [K-Tab ER] 20 meq PO DAILY #15 tablet.er 12/11/19 History of Present Illiness History of Present Illness: FRANCISCO SINGH is a 64 year old male who presented to the emergency room with a 10- day history of nausea and vomiting. He admits developing nausea and vomiting 10 days ago with gradual worsening over the course of time. His nausea and vomiting have been accompanied by orthostatic lightheadedness with dizziness and have been associated with intermittent epigastric abdominal pain, an intermittent low-grade fever and progressive generalized weakness. He further admits a history of chronic diarrhea related to his use of metformin and indicates that he has been able to keep most of his medications and a little bit of fluid down. He further admits restarting his chemotherapy for CML on 11/07/2019 under the direction of Dr. Luo. In the emergency room he was found to have hyponatremia, hypokalemia acute kidney injury and acute hypotension due to hypovolemia which responded well to IV fluids. Patient was subsequently admitted to the hospital for further evaluation treatment. Hospital Course Hospital Course: Patient presented with nausea and vomiting and significant dehydration. He was admitted given significant SÁNCHEZ with creatinine up to 2.3 on admission while his baseline is around 1.0. Patient was treated with aggressive IV fluid hydration. The potential causes of his nausea were deemed to likely be his chemotherapy medication which was held upon admission. Of note patient has chronic myeloid leukemia and is being treated by Dr. Luo. While patient was hospitalized, patient was seen by Dr. Luo who recommended continue to hold his ch emotherapy for now. His CML with WBC over 200,000 indicating accelerated phase was also addressed and oncology recommended no indication for leukapheresis at this time. Uric acid was measured which was 14. There was some concern for tumor lysis syndrome but after further discussion with oncology, oncology recommends that SÁNCHEZ is likely secondary to dehydration more so than tumor lysis syndrome. Either way patient has been started on allopurinol with improvement of uric acid levels to 7 and SÁNCHEZ has resulted aggressive IV fluids hydration. Patient has been cleared for discharge by oncology and his chemo has been placed on hold as recommended and will be discharged with some antiemetic to follow-up with Dr. Luo in the clinic on Sunday for further evaluation and treatment of his CML. Physical Exam Vital Signs: Temp Pulse Resp BP Pulse Ox 101 F H 88 18 135/75 H 98 12/11/19 00:34 12/10/19 20:00 12/10/19 23:22 12/10/19 23:22 12/10/19 20:00 Intake & Output 12/10/19 12/11/19 12/12/19 06:59 06:59 06:59 Intake Total 5767 6339 Output Total 725 Balance 9187 2788 Weight 84.5 kg 85.3 kg 85.3 kg General appearance: PRESENT: no acute distress, cooperative Neurological exam: PRESENT: alert, awake, oriented to person, oriented to place, oriented to time Results Laboratory Results: WBC 234.0 10^3/uL (4.0-10.5) H* 12/11/19 04:40 RBC 2.79 10^6/uL (4.35-5.55) L 12/11/19 04:40 Hgb 8.0 g/dL (13.5-17.0) L 12/11/19 04:40 Hct 26.0 % (37.9-51.0) L 12/11/19 04:40 MCV 93 fl (80-97) 12/11/19 04:40 MCH 28.7 pg (27.0-33.4) 12/11/19 04:40 MCHC 30.8 g/dL (32.0-36.0) L 12/11/19 04:40 RDW 17.6 % (11.5-14.0) H 12/11/19 04:40 Plt Count 62 10^3/uL (150-450) L 12/11/19 04:40 Lymph % (Auto) Not Reportable 12/07/19 22:35 Hill % (Auto) Not Reportable 12/07/19 22:35 Eos % (Auto) Not Reportable 12/07/19 22:35 Baso % (Auto) Not Reportable 12/07/19 22:35 Absolute Neuts (auto) Not Reportable 12/07/19 22:35 Absolute Lymphs (auto) Not Reportable 12/07/19 22:35 Absolute Monos (auto) Not Reportable 12/07/19 22:35 Absolute Eos (auto) Not Reportable 12/07/19 22:35 Absolute Basos (auto) Not Reportable 12/07/19 22:35 Total Counted 100 12/07/19 22:35 Seg Neutrophils % Not Reportable 12/07/19 22:35 Seg Neuts % (Manual) 63 % (42-78) 12/07/19 22:35 Band Neutrophils % 16 % (3-5) H 12/07/19 22:35 Lymphocytes % (Manual) 3 % (13-45) L 12/07/19 22:35 Monocytes % (Manual) 5 % (3-13) 12/07/19 22:35 Eosinophils % (Manual) 5 % (0-6) 12/07/19 22:35 Basophils % (Manual) 2 % (0-2) 12/07/19 22:35 Metamyelocytes % 3 % (0-1) H 12/07/19 22:35 Myelocytes % 1 % (0) H 12/07/19 22:35 Promyelocytes % 2 % (0) H 12/07/19 22:35 Abs Neuts (Manual) 224.9 10^3/uL (1.7-8.2) H 12/07/19 22:35 Abs Lymphs (Manual) 7.9 10^3/uL (0.5-4.7) H 12/07/19 22:35 Abs Monocytes (Manual) 13.2 10^3/uL (0.1-1.4) H 12/07/19 22:35 Absolute Eos (Manual) 13.2 10^3/uL (0.0-0.6) H 12/07/19 22:35 Abs Basophils (Manual) 5.3 10^3/uL (0.0-0.2) H 12/07/19 22:35 Toxic Granulation 1+ 12/07/19 22:35 Platelet Comment DECREASED 12/07/19 22:35 Polychromasia 1+ 12/07/19 22:35 Anisocytosis 2+ 12/07/19 22:35 Sodium 140.0 mmol/L (137-145) 12/11/19 04:40 Potassium 3.4 mmol/L (3.6-5.0) L 12/11/19 04:40 Chloride 102 mmol/L (98-107) 12/11/19 04:40 Carbon Dioxide 26 mmol/L (22-30) 12/11/19 04:40 Anion Gap 12 (5-19) 12/11/19 04:40 BUN 10 mg/dL (7-20) 12/11/19 04:40 Creatinine 0.93 mg/dL (0.52-1.25) 12/11/19 04:40 Est GFR ( Amer) > 60 (>60) 12/11/19 04:40 Est GFR (MDRD) Non-Af > 60 (>60) 12/11/19 04:40 Glucose 127 mg/dL (75-110) H 12/11/19 04:40 POC Glucose 159 mg/dL (70-110) H 12/11/19 11:11 Hemoglobin A1c % > 14.0 % (4.7-6.0) H 12/08/19 06:00 Lactic Acid 0.8 mmol/L (0.7-2.1) 12/08/19 10:13 Uric Acid 7.3 mg/dL (3.5-8.5) 12/10/19 07:13 Calcium 8.4 mg/dL (8.4-10.2) 12/11/19 04:40 Phosphorus 4.6 mg/dL (2.5-4.5) H 12/08/19 06:00 Magnesium 1.6 mg/dL (1.6-2.3) 12/11/19 04:40 Total Bilirubin 0.8 mg/dL (0.2-1.3) 12/07/19 22:35 Direct Bilirubin 0.1 mg/dL (0.0-0.4) 12/07/19 22:35 Neonat Total Bilirubin Not Reportable 12/07/19 22:35 Neonat Direct Bilirubin Not Reportable 12/07/19 22:35 Neonat Indirect Bili Not Reportable 12/07/19 22:35 AST 31 U/L (17-59) 12/07/19 22:35 ALT 15 U/L (<50) 12/07/19 22:35 Alkaline Phosphatase 153 U/L (38-126) H 12/07/19 22:35 Total Protein 6.9 g/dL (6.3-8.2) 12/07/19 22:35 Albumin 3.8 g/dL (3.5-5.0) 12/07/19 22:35 TSH 2.03 uIU/mL (0.47-4.68) 12/08/19 06:00 Urine Color YELLOW 12/07/19 23:00 Urine Appearance SLIGHTLY-CLOUDY 12/07/19 23:00 Urine pH 5.0 (5.0-9.0) 12/07/19 23:00 Ur Specific [place] 1.010 12/07/19 23:00 Urine Protein NEGATIVE mg/dL (NEGATIVE) 12/07/19 23:00 Urine Glucose (UA) NEGATIVE mg/dL (NEGATIVE) 12/07/19 23:00 Urine Ketones NEGATIVE mg/dL (NEGATIVE) 12/07/19 23:00 Urine Blood NEGATIVE (NEGATIVE) 12/07/19 23:00 Urine Nitrite NEGATIVE (NEGATIVE) 12/07/19 23:00 Urine Bilirubin NEGATIVE (NEGATIVE) 12/07/19 23:00 Urine Urobilinogen NEGATIVE mg/dL (<2.0) 12/07/19 23:00 Ur Leukocyte Esterase NEGATIVE (NEGATIVE) 12/07/19 23:00 Urine WBC (Auto) 8 /HPF 12/07/19 23:00 Urine RBC (Auto) 0 /HPF 12/07/19 23:00 U Hyaline Cast (Auto) 4 /LPF 12/07/19 23:00 Squamous Epi Cells Auto <1 /HPF 12/07/19 23:00 Urine Mucus (Auto) RARE /LPF 12/07/19 23:00 Urine Ascorbic Acid NEGATIVE (NEGATIVE) 12/07/19 23:00 Slides for Path Review SEE COMMENT 12/07/19 22:35 Impressions: Chest X-Ray 12/09/19 00:00 IMPRESSION: Minimal right basilar atelectasis. Trace left pleural effusion Plan Time Spent: Less than 30 Minutes Stroke Is this a Stroke Patient?: No Acute Heart Failure - Is this a Heart Failure Patient?: No
== END 2019-12-11 14:00 | disposition home or self-care (01) | DRG 683 ==
LOC: ER 22:07 → EH 12-08 01:16 → 4W 12-08 02:25
PROVIDERS: ADMIT Emergency Medicine; ATTEND Emergency Medicine
DX: N17.9 Acute kidney failure, unspecified (principal); C92.10 Chronic myeloid leukemia, BCR/ABL-positive, not having achieved remission; E87.1 Hypo-osmolality and hyponatremia; D69.6 Thrombocytopenia, unspecified; I95.9 Hypotension, unspecified; E86.0 Dehydration; E87.6 Hypokalemia; E79.0 Hyperuricemia without signs of inflammatory arthritis and tophaceous disease; E83.42 Hypomagnesemia; E86.1 Hypovolemia; E11.9 Type 2 diabetes mellitus without complications; K29.00 Acute gastritis without bleeding; R50.81 Fever presenting with conditions classified elsewhere; D64.9 Anemia, unspecified; Z79.4 Long term (current) use of insulin; Z79.899 Other long term (current) drug therapy; Z91.14 Patient's other noncompliance with medication regimen; Z88.8 Allergy status to other drugs, medicaments and biological substances; Z83.3 Family history of diabetes mellitus; Z82.49 Family history of ischemic heart disease and other diseases of the circulatory system
CPT/HCPCS: 36415; 71046; 80048; 80053; 81001; 82962; 83036; 83605; 83735; 84100; 84443; 84550; 85025; 85027; 87040; 87086; 94799; 96374; 96375; 99284; C9113; J1815; J2060; J2405; J2765; J3475; J3480; J3490; J7120

== ENCOUNTER → 2020-02-03 | Outpatient (CLI) | payer BC ==
--- NOTE | 2020-02-03 12:50 | RADIOLOGY REPORT (SQ) ---
EXAM DESCRIPTION: VENOUS UNILATERAL LOWER COMPLETED DATE/TIME: 02/03/2020 11:46 am REASON FOR STUDY: RLE PAIN AND SWELLING M79.609 PAIN IN UNSPECIFIED LIMB COMPARISON: None. TECHNIQUE: Dynamic and static parikh scale and color images acquired of the right leg venous system. S elected spectral images acquired with additional compression and augmentation maneuvers. The contrala teral common femoral vein and saphenofemoral junction were also imaged. Images stored on PACS. LIMITATIONS: None. FINDINGS: COMMON FEMORAL: Normal phasicity, compression and augmentation. No visualized echogenic ma terial on parikh scale. No defects on color images. FEMORAL: Normal compression and augmentation. No visualized echogenic material on parikh scale. No defe cts on color images. POPLITEAL: Normal compression, augmentation. No visualized echogenic material on parikh scale. No defec ts on color images. CALF VESSELS: Normal compression, augmentation. No visualized echogenic material on parikh scale. No de fects on color images. GSV and SSV: Normal compression, augmentation. No visualized echogenic material on parikh scale. No def ects on color images. ANY DEEP VENOUS INSUFFICIENCY: Not evaluated. ANY EVIDENCE OF POPLITEAL CYST: No. OTHER: No other significant finding. CONTRALATERAL COMMON FEMORAL VEIN AND SAPHENOFEMORAL JUNCTION: Normal phasicity, compression and augmentation. No visualized echogenic material on parikh scale. No de fects on color images. IMPRESSION: NO EVIDENCE DVT OR SVT IN THE RIGHT LEG. TECHNICAL DOCUMENTATION: JOB ID: [id number]- All Rights Reserved Reading location - IP/workstation name: [email or web address]
== END ==
LOC: SP 10:35
PROVIDERS: ATTEND Internal Medicine
DX: M79.609 Pain in unspecified limb (principal); M79.89 Other specified soft tissue disorders
CPT/HCPCS: 93971

== ENCOUNTER → 2020-02-27 | Outpatient (CLI) | payer BC, MEDICAID ==
--- NOTE | 2020-02-27 10:56 | ER [facility] ASSESSMENT REPORT ---
Intake - In the Last 14 days Have you traveled outside [place]?: No Have you been in close contact with someone CONFIRMED: No Worked in Healthcare?: No - Symptoms Subjective Fever(Lucan feverish): Yes Chills: No Muscule Aches: Yes Runny Nose: No Sore Throat: Yes Cough (New or worsening chronic cough): No Shortness of breath: Yes Nausea or Vomiting: No Headache: Yes Abdominal Pain: No Diarrhea(3 or more loose stools in last 24 hours): No - Do you have any of the following Chronic lung disease: Asthma or emphysema or COPD: No Cystic Fibrosis: No Diabetes: Yes High Blood Pressure: No Cardiovascular Disease: No Chronic Kidney Disease: No Chronic Liver Disease: No Chronic blood disorder like Sickle Cell Disease: Yes Chronic Blood Disorder Comment: leukemia Weak immune system due to disease or medication: Yes Immune System Comment: leukemia Neurologic condition that limits movement: No Developmental delay - Moderate to Severe: No Recent (within past 2 weeks) or current : No Morbid Obesity (>100 pounds over ideal weight): No - Objective Temperature: 96.9 F Pulse Rate: 90 Blood Pressure: 119/79 O2 Sat by Pulse Oximetry: 98 Objective: Given above, testing performed: If Testing Performed: Test Specimen Type Sent to General - General Information source: Patient - HPI Context: Patient presents to the [facility] for testing for the coronavirus. Associated symptoms: Body/muscle aches, Nonproductive cough, Fever, Headache, Sore throat Exacerbated by: Denies - Related Data Allergies/Adverse Reactions: dasatinib [From [facility]ry[facility]] Allergy (Verified 12/07/19 23:58) Past Medical History - General Information source: Patient - Social History Smoking Status: Never Smoker Family History: CAD, DM, Hypertension, Other - Myasthenia gravis, multiple sclerosis. denies: Malignancy - Past Medical History Cardiac Medical History: Denies: Hx Atrial Fibrillation, Hx Congestive Heart Failure, Hx Coronary Artery Disease, Hx Heart Attack, Hx Hypercholesterolemia, Hx Hypertension Pulmonary Medical History: Denies: Hx Asthma, Hx Bronchitis, Hx COPD, Hx Pneumonia, Hx Sleep Apnea Neurological Medical History: Denies: Hx Cerebrovascular Accident, Hx Seizures Endocrine Medical History: Reports: Hx Diabetes Mellitus Type 2. Denies: Hx Diabetes Mellitus Type 1, Hx Hyperthyroidism, Hx Hypothyroidism Malignancy Medical History: Reports Hx Leukemia - Chronic myelocytic leukemia GI Medical History: Denies: Hx Cirrhosis, Hx Crohn's Disease, Hx Gastroesophageal Reflux Disease, Hx Hepatitis, Hx Ulcerative Colitis Musculoskeletal Medical History: Denies Hx Arthritis, Denies Hx Gout Skin Medical History: Denies Hx Eczema, Denies Hx Psoriasis Infectious Medical History: Denies: Hx Hepatitis Past Surgical History: Reports: Other - Bone marrow biopsy, ureteral stone removal via cystoscopy Diagnostic Results Laboratory Results: The patient was evaluated during the global Covid 19 pandemic, and that diagnosis was suspected/considered upon their initial presentation. Their evaluation, treatment and testing was consistent with current guidelines for patients who present with complaints or symptoms that may be related to Covid 19. Patient left after specimen was collected and did not stay for provider evaluation. Nursing staff attempted to contact patient to return for complete evaluation. No answer when called. Labs- Entire Visit 02/27/20 02/27/20 11:10 11:10 Influenza A (Rapid) NEGATIVE Influenza B (Rapid) NEGATIVE Group A Strep Rapid NEGATIVE Patient Education/Counseling Counseling/Education: Patient was provided with discharge information including: As a person under investigation for Covid 19, the [place] department of Health and Human Services, division of public health advises you to adhere to the following guidance until your test results are reported to you. If your test result is positive, you will receive additional information from your provider and your local health department at that time. Remain at home until you are cleared by the health provider or public health authorities. Keep a log of visitors to your home, notify any visitors to your home of your isolation status. If you plan to move to a new address or leave the county, notify the local health department in your County. Call your doctor or seek care if you have an urgent medical need. Before seeking medical care, call ahead to get instructions from the provider before arriving at the medical office clinic or hospital. Notify them that you are being tested for the virus that causes Covid 19 so that arrangements can be made, as necessary, to prevent transmission to others in the healthcare setting. Next, notify the local health department in your county. If a medical emergency arises and you need to call 911, inform the first responders that you are being tested for the virus that causes Covid 19. Next, notify the local health department in your county. [facility] Discharge - Discharge Clinical Impression: covid 19 screening Disposition: Home; Selfcare
[2020-02-27 11:18] VITALS: BP 119/79
[2020-02-27 12:08] LABS: A TYPE INFLUENZA AG NEGATIVE (NEGATIVE); B INFLUENZA AG NEGATIVE (NEGATIVE)
== END ==
LOC: RDC 10:34
PROVIDERS: ATTEND Nurse Practitioner Family
DX: R06.02 Shortness of breath (principal); J02.9 Acute pharyngitis, unspecified; R50.9 Fever, unspecified; C91.10 Chronic lymphocytic leukemia of B-cell type not having achieved remission; R51 Headache; M79.10 Myalgia, unspecified site; E11.9 Type 2 diabetes mellitus without complications; Z88.8 Allergy status to other drugs, medicaments and biological substances
CPT/HCPCS: 87070; 87635; 87804; 87880

== ENCOUNTER → 2020-03-18 | Outpatient (CLI) | payer BC ==
--- NOTE | 2020-03-18 09:04 | ST Modified Barium Swallow ---
Recommendation - Recommendations Recommendations: Recommend dysphagia therapy to address pharyngeal phase swallowing deficits. Medical Diagnoses - Medical Diagnoses Medical Diagnosis Description & ICD-10 Code(s): dysphagia, R13.10 Other Medical Diagnoses/Co-Morbidities: per patient report: leukemia, vocal fold atrophy - ICD-10 Tx Diagnosis Coding (1) Other diseases of vocal cords ICD-10 Code(s): J38.3 - OTHER DISEASES OF VOCAL CORDS (2) Dysphagia, pharyngeal ICD-10 Code(s): R13.13 - DYSPHAGIA, PHARYNGEAL PHASE ST Modified Barium Swallow - General Date: 03/18/20 Referring Physician: Dr. Odonnell Risks/Precautions: None Date of Onset: 02/11/20 - approximate onset date Reason for Referral: difficulty swallowing - History History obtained from: Patient -: Medical - per patient report: patient has had difficulty swallowing for approximately 1 month, at around the same time that a new medication was started for his leukemia. Patient denies any radiation treatment. The patient has also had weight loss over the past month, he states this is due to reduced appetite. Patient reports globus sensation with solids only, and with pills at times. He reports not having to avoid any foods due to difficulty swallowing, but states that he now takes his pills individually instead of all at once. Patient has had no recent pneumonia or bronchitis. Patient does report having a laryngeal scope performed, which showed incomplete vocal fold closure and atrophy. Medications: Patient unable to provide list, does state taking medication for leukemia Allergies: None reported - Functional Status Prior Functional Status: INDEPENDENT: feeding - independent Current Functional Limitations: feeding - globus sensation with solids - Subjective Patient/caregiver goal(s): improve intake, better swallow Cognitive-Linguistic Function: WNL Speech Intelligibility: WNL - weak voicing Current Nutritional Means: PO Current PO diet: Regular Current symptoms: Weight loss, c/o Globus sensation Pain: Patient reports, 0/5 - Objective Assessment: Upright, Left Lateral - Food Trials Used Food trials used: Thin liquids, Pureed, Regular The patient: Was Able to Self Feed - Oral-Motor Skills Velo-pharyngeal function: Unremarkable Laryngeal Function: weak voicing - Assessment Oral prep: Normal Labial closure: Adequate Leakage: None Mastication: Adequate Lingual Movement: Normal Oral stage: Normal for this Procedure - Pharyngeal Stage Initiation of Pharyngeal Stage Reflex: Normal Decreased laryngeal elevation: No Reduced Velopharyngeal Closure: no Reduced pressure generation: Yes reduced tongue-based retraction: No Pre-swallow pooling in valleculae: Mild Pre-Swallow pooling in pyriforms: None Reduced Thyro-Hyoid approximation: Yes - mild Reduced epiglottic excursion: Yes Reduced pharyngeal peristalsis/contraction: Yes Multiple Swallows with: Ineffective Clearance Post-swallow residulas vallecular: Moderate Post-Swallow residuals in pyriforms: Moderate Reduced Cricopharyngeal opening: Yes - Fall Risk Assessment Medications/Conditions that increase fall risks include: Antidepressants, sedatives, anti-arrhythmic, diuretic, benzodiazipenes, neuroleptics. BP regulation problems, cardiac problems, balance or gait deficits, neurological problems. Fall Risk Actions Taken: No action needed - Behavioral Observations During evaluation process patient: was pleasant, was cooperative, able to answer questions - Treatment / Educational Needs: Treatment/Education Needs: Treatment consisted of patient education on the role of the Speech Pathologist. Patient's plan of care and golas were communicated as well as scheduling and attendance policies. Recommendations for initial home program were shared. Patient demonstrated understanding and verbalized agreement. - Impression/Summary Laryngeal Penetration: Yes - flash penetration seen with sequential straw sips of thin liquid only, staying well above the level of the vocal folds Tracheal Aspiration: no Patient presents with: Pharyngeal stage dysph. - moderate Risk of Aspiration: Moderate Evaluation and Findings: Patient demonstrated significiantly reduced epiglottic inversion, which resulted in residue of all textures within the valleculae, residue increased as texture increased. Patient also demonstrated reduced pharyngeal constriction and reduced UES opening, which resulted in residue within the pyriform sinus for all textures, residue increasing as texture increased. Patient was only aware of residue with regular solid trial (cracker). Was cued for second swallow with liquids and purees, however, this only minimally cleared residue. Attempted chin tuck for increased UES opening, some success seen, but pyriform residue remained. The reduced epiglottic inversion and reduced pharyngeal constriction place patient at moderate risk of aspiration, as the airway is not fully protected during the swallow and residue could potentially enter the airway after the swallow. - Recommendations Solid diet recommendations: Regular Liquid Diet Modification: Thin Strict aspiration precautions: Yes Pt/Family education and followup with MD: Yes Dysphagia therapy with [employer] ADMINISTRATOR: yes Recommended techniques: Fully Upright During Meal, Small Bites and Sips, Alternate Bites/Sips, Chin Tuck to Swallow Information, Precautions and Recommendations: Patient (Written), Patient (Verbal) Other recommendations: Recommend course of dysphagia treatment with follow up MBSS to address pharyngeal phase swallowing deficits. - Time Total Time: 30 - Plan of Care Strategies to optimize patient understanding include:: ongoing assessment of educational needs, implementation of educational strategies, and re-education. - - -: Thank you for the opportunity to work with this patient and his/her family. Should you have any questions about this patient's plan or progress, I can be reached at [phone].
--- NOTE | 2020-03-18 11:22 | RADIOLOGY REPORT (SQ) ---
EXAM DESCRIPTION: COOKIE SWALLOW IMAGES COMPLETED DATE/TIME: 03/18/2020 8:59 am REASON FOR STUDY: (J38.3)OTHER DISEASES OF VOCAL CORDS J38.3 OTHER DISEASES OF VOCAL CORDS HISTORY OF LEUKEMIA COUGH, SORE THROAT. COMPARISON: None. TECHNIQUE: Videofluoroscopic swallowing examination was performed in conjunction with speech patholo gy. Videofluoroscopic imaging was obtained and reviewed and these are the findings: RADIATION DOSE: Fluoro time 2.24 minutes 1 images saved to PACS. LIMITATIONS: None FINDINGS: The patient was brought into the fluoro room and placed upright on a modified barium swall ow chair. The patient was then given multiple consistencies mixed with barium to swallow under live fluoroscopic video guidance. According to the Speech Pathologist there was a single episode of laryn geal penetration with thin barium. No aspiration identified. All other consistencies swallowed with out incident. Note is made of a lack of epiglottic inversion and a small amount of hang up of barium in the vallecula and piriforms. Please refer to the speech pathology report for further details. IMPRESSION: NO EVIDENCE OF ASPIRATION. PLEASE SEE SPEECH PATHOLOGIST REPORT FOR OTHER FINDINGS AND R ECOMMENDATIONS. COMMENT: None Quality ID [id number]: Final reports for procedures using fluoroscopy that document radiation exposure guido angelita, or exposure time and number of fluorographic images (if radiation exposure indices are not avail able) TECHNICAL DOCUMENTATION: JOB ID: [id number] 2010 [employer] All Rights Reserved Reading location - IP/workstation name: [email or web address] [id number]
== END ==
LOC: RAD 08:10
PROVIDERS: ATTEND Otolaryngology
DX: J38.3 Other diseases of vocal cords (principal); R13.13 Dysphagia, pharyngeal phase; C95.90 Leukemia, unspecified not having achieved remission
CPT/HCPCS: 74230